=== PATIENT | female | born 1945 | race Caucasian/White ===

== ENCOUNTER → 2020-11-20 | Outpatient (CLI) | payer MEDICARE, OTHER ==
[~2020-11-20] VITALS: Ht 152.4 cm; Wt 79.0 kg
[2020-11-20 12:14] VITALS: BP 131/64
== END | disposition home or self-care (01) ==
LOC: SRCNTR 10:54
PROVIDERS: ATTEND Internal Medicine Critical Care Medicine
DX: I10 Essential (primary) hypertension (principal); E11.9 Type 2 diabetes mellitus without complications; E78.5 Hyperlipidemia, unspecified; I25.10 Atherosclerotic heart disease of native coronary artery without angina pectoris; K44.9 Diaphragmatic hernia without obstruction or gangrene; B37.1 Pulmonary candidiasis
CPT/HCPCS: G0463

== ENCOUNTER → 2020-12-23 | Outpatient (CLI) | payer MEDICARE, OTHER ==
[~2020-12-23] VITALS: Ht 157.5 cm; Wt 78.4 kg
[2020-12-23 11:03] VITALS: BP 143/64
[2020-12-23 11:08] VITALS: BP 143/64
== END | disposition home or self-care (01) ==
LOC: SRCNTR 10:03
PROVIDERS: ATTEND Internal Medicine Critical Care Medicine
DX: R91.8 Other nonspecific abnormal finding of lung field (principal); R05 Cough; B37.1 Pulmonary candidiasis
CPT/HCPCS: G0463

== ENCOUNTER → 2021-01-19 | Outpatient (CLI) | payer MEDICARE, OTHER ==
[~2021-01-19] VITALS: Ht 157.5 cm; Wt 77.1 kg
[2021-01-19 11:50] VITALS: BP 138/88
== END | disposition home or self-care (01) ==
LOC: SRCNTR 10:30
PROVIDERS: ATTEND Nurse Practitioner Family
DX: R91.8 Other nonspecific abnormal finding of lung field (principal); R05 Cough; I10 Essential (primary) hypertension; E11.9 Type 2 diabetes mellitus without complications; I70.90 Unspecified atherosclerosis; Z86.010 Personal history of colon polyps; Z96.652 Presence of left artificial knee joint
CPT/HCPCS: G0463